=== PATIENT | female | born 1975 | race Two or more races ===

== ENCOUNTER 2022-05-18 16:18 | Emergency (ER) | payer MEDICAID, OTHER ==
[~2022-05-18] VITALS: Ht 162.6 cm; Wt 82.6 kg
[2022-05-18 19:39] VITALS: BP 134/68
[2022-05-18] MEDS ORDERED: HYDROcodone-ACET 5/325MG TAB PO ONE (20:00)
[2022-05-18] MEDS ORDERED: IBUPROFEN 800 MG TAB PO ONE (20:00)
[2022-05-18] MEDS ORDERED: IBUP800T27 PO (20:10)
[2022-05-18] MEDS ORDERED: HYDR-4902 PO (20:10)
== END 2022-05-18 20:20 | disposition home or self-care (01) ==
LOC: ER 16:18
DX: S33.5XXA Sprain of ligaments of lumbar spine, initial encounter (principal); E11.9 Type 2 diabetes mellitus without complications; X58.XXXA Exposure to other specified factors, initial encounter; Y93.89 Activity, other specified; Y92.89 Other specified places as the place of occurrence of the external cause; Y99.8 Other external cause status